=== PATIENT | female | born 1970 | race Caucasian/White ===

== ENCOUNTER 2017-03-26 14:34 | Emergency (ER) | payer BC ==
[~2017-03-26] VITALS: Ht 160 cm; Wt 67.9 kg
[~2017-03-26 14:34] MED LIST: Ecotrin PO; NOHOMEMEDS; ZOLOFT50 MG PO; ZYPREXA5 MG PO
[2017-03-26 15:17] LABS: BASOPHIL COUNT 0.1 K/uL (0-0.1); EOSINOPHIL (%) 2.3 % (0-5); EOSINOPHIL COUNT 0.2 K/uL (0-0.3); HEMATOCRIT 35.8 % (36.0-46.0); IMMATURE GRANULOCYTE (%) 0.4 % (0.0-0.7); INSTRUMENT ABS NEUTROPHIL CT 3.5 K/uL; LYMPHOCYTE COUNT 3.6 K/uL (1.0-2.8); MCH 31.2 PG (29.0-34.0); MCHC 33.5 G/DL (30.0-36.0); MEAN PLAT.VOLUME 10.1 uM^3 (9.5-12.4); MONOCYTE COUNT 0.5 K/uL (0-0.8); NEUTROPHIL (%) 44.9 % (45-76); NEUTROPHIL COUNT 3.5 K/uL (1.8-6.4); PLATELET COUNT 222 K/uL (156-360); RBC DIS.WIDTH-CV 11.9 % (11.8-14.6); RBC DIS.WIDTH-SD 40.4 % (39-53); RED BLOOD COUNT 3.85 M/uL (3.80-5.20); WHITE BLOOD COUNT 7.9 K/uL (4.1-10.2)
[2017-03-26 15:25] LABS: CHLORIDE 108 mEq/L (99-109); POTASSIUM 4.1 mEq/L (3.7-5.4); SODIUM 143 mEq/L (136-147)
[2017-03-26 15:27] LABS: GLUCOSE 99 mg/dL (70-99)
[2017-03-26 15:29] LABS: ANION GAP 9 MEQ/L (2-14); TOTAL BILIRUBIN 0.4 mg/dL (0.0-1.0)
[2017-03-26 15:31] LABS: ALKALINE PHOSPHATASE 81 IU/L (3-129); GFR ESTIMATE (CALCULATED) > 59 mL/min/
[2017-03-26 15:32] LABS: UREA NITROGEN (BUN) 13 mg/dL (9-23)
[2017-03-26] MEDS ORDERED: CIPRO500 MG PO (16:49)
[2017-03-26] MEDS ORDERED: FLAGYL500 MG PO (16:49)
[2017-03-26] MEDS ORDERED: BENTYL20 MG PO (16:50)
[2017-03-26 17:11] VITALS: BP 137/71
== END 2017-03-26 17:22 | disposition home or self-care (01) ==
LOC: EME 14:34
PROVIDERS: Emergency Medicine
DX: K52.9 Noninfective gastroenteritis and colitis, unspecified (principal); K62.5 Hemorrhage of anus and rectum; K64.8 Other hemorrhoids; F32.9 Major depressive disorder, single episode, unspecified; Z87.891 Personal history of nicotine dependence
CPT/HCPCS: 80053; 85025; 99281; 99284